=== PATIENT | male | born 1980 | race Caucasian/White ===

== ENCOUNTER 2020-06-29 10:36 | Emergency (ER) | payer OTHER ==
[~2020-06-29] VITALS: Ht 180.3 cm; Wt 76.0 kg
[2020-06-29 10:39] VITALS: BP 122/77
[2020-06-29] MEDS ORDERED: TETanus/Pertussis (Acell)/Diphther VAC/PF (Tdap-Adult) 0.5ml syringe IMVAC ONE (10:45)
[2020-06-29] MEDS ORDERED: LIDOcaine 1% W/epiNEPHrine 1:200,000 10ml vial IJ ONE (10:45)
[2020-06-29] MEDS ORDERED: ceFAZolin 1gm IM kit IM ONE (11:45)
[2020-06-29] MEDS ORDERED: bacitracin/polymyxin B 15 GM ointment TP SCH (12:50)
[2020-06-29] MEDS ORDERED: OXYC-145 PO (13:43)
[2020-06-29] MEDS ORDERED: CEPH-585 PO (13:43)
[2020-07-01] MEDS ORDERED: OXYC-145 PO (18:00)
== END 2020-06-29 14:00 | disposition home or self-care (01) ==
LOC: ER 10:36
DX: S62.663A Nondisplaced fracture of distal phalanx of left middle finger, initial encounter for closed fracture (principal); Z79.2 Long term (current) use of antibiotics; Z79.899 Other long term (current) drug therapy; X58.XXXA Exposure to other specified factors, initial encounter; Y93.89 Activity, other specified; Y92.89 Other specified places as the place of occurrence of the external cause; Y99.8 Other external cause status
CPT/HCPCS: 73120; 90471; 90715; 96372; 99284; J0690

== ENCOUNTER 2020-07-06 15:10 | Emergency (ER) | payer OTHER ==
[~2020-07-06] VITALS: Ht 180.3 cm; Wt 74.5 kg
[~2020-07-06 15:10] MED LIST: CEPH-585 PO; OXYC-145 PO
[2020-07-06 15:40] VITALS: BP 141/101
[2020-07-06] MEDS ORDERED: OXYC-145 PO (16:51)
== END 2020-07-06 17:03 | disposition home or self-care (01) ==
LOC: ER 15:11
DX: S61.213D Laceration without foreign body of left middle finger without damage to nail, subsequent encounter (principal); Z48.00 Encounter for change or removal of nonsurgical wound dressing; X58.XXXD Exposure to other specified factors, subsequent encounter
CPT/HCPCS: 73140; 99283